=== PATIENT | female | born 1965 | race Caucasian/White ===

== ENCOUNTER → 2017-11-17 | Outpatient (CLI) | payer BC ==
[~2017-11-17] MED LIST: GADOBUTROL 10 ML VIAL IVP ONE
== END ==
LOC: FIMAGING 10:13
PROVIDERS: ATTEND Psychiatry & Neurology Neurology
DX: D33.2 Benign neoplasm of brain, unspecified (principal); R43.9 Unspecified disturbances of smell and taste
CPT/HCPCS: A9585

== ENCOUNTER → 2018-04-14 | Outpatient (CLI) | payer BC | LOC: FIMAGING 16:06 | PROVIDERS: ATTEND Obstetrics & Gynecology Gynecology | DX: Z12.31 Encounter for screening mammogram for malignant neoplasm of breast (principal) ==